=== PATIENT | female | born 1950 | race Two or more races ===

== ENCOUNTER 2023-08-24 14:12 | Emergency (ER) | payer OTHER ==
[~2023-08-24] VITALS: Ht 170.2 cm; Wt 88.0 kg
[~2023-08-24 14:12] MED LIST: CALAN IV; CORTISONE25 MG PO
[2023-08-24] MEDS ORDERED: DICLOFENAC SODI50 MG PO ×2 (17:43→17:46)
== END 2023-08-24 18:04 ==
LOC: ER 14:12
DX: S79.811A Other specified injuries of right hip, initial encounter (principal); S89.82XA Other specified injuries of left lower leg, initial encounter; W19.XXXA Unspecified fall, initial encounter; Y93.89 Activity, other specified; Y92.89 Other specified places as the place of occurrence of the external cause; Y99.8 Other external cause status; I10 Essential (primary) hypertension
CPT/HCPCS: 73502; 73560; 96372; 99283; J1885